=== PATIENT | female | born 1950 | race Hispanic/Latino ===

== ENCOUNTER 2019-06-18 10:17 | Emergency (ER) | payer MEDICARE, MEDICAID ==
[~2019-06-18] VITALS: Ht 144.8 cm; Wt 110.0 kg
[~2019-06-18 10:17] MED LIST: ASPIRIN EC81 MG PO; B-12 10001000 MCG PO; GLUCOPHAGE1000 MG PO; LANTUS100 MG/ML SC; LISINOPRIL2.5 MG PO; LISINOPRIL20 M1 PO; MELOXICAM PO; NAPROSYN500 MG PO; OXYBUTYNIN5 M1 PO; PERCOCET1 TA2 PO; PLAVIX75 MG PO; PROVENTIL IN; TRAMADOL HCL50 MG PO; TRAZODONE100 MG PO
[2019-06-18 10:50] LABS: HEMATOCRIT 41.1 % (37.0-47.0); HEMOGLOBIN 13.4 g/dl (12.0-16.0); IMMATURE GRANULOCYTES 0.4 % (0.0-5.0); MEAN CELL VOLUME 86.5 fL CALC (80.0-100.0); MEAN CORPUSCULAR HGB 28.2 pG CALC (26.0-32.0); MEAN CORPUSCULAR HGB CONC 32.6 g/L CALC (32.0-36.0); NEUT# 7.14 thou/uL (2.00-7.15); RED BLOOD COUNT 4.75 mill/uL (4.20-5.60); RED CELL DISTRI WIDTH 13.7 % (11.5-15.5)
[2019-06-18 11:14] LABS: ANION GAP 13 (6-22 (CALC)); BUN 13 mg/dL (8-23); BUN/CREATININE RATIO 28 (12-20 (CALC)); CARBON DIOXIDE 27 mmol/l (22-30); CHLORIDE 102 mmol/l (95-108); CREATININE 0.5 mg/dL (0.5-1.0); GFR > 60 ML/MIN (>=60 (CALC)); GFR FOR AFR.AMER. > 60 ML/MIN (>=60 (CALC)); POTASSIUM 4.6 mmol/l (3.5-5.1); SODIUM 137 mmol/l (137-146)
[2019-06-18 12:06] VITALS: BP 147/71
== END 2019-06-18 12:10 | disposition left against medical advice (07) ==
LOC: ED 10:17
PROVIDERS: Family Medicine
DX: R07.9 Chest pain, unspecified (principal); R55 Syncope and collapse; K45.8 Other specified abdominal hernia without obstruction or gangrene; I10 Essential (primary) hypertension; Y92.238 Other place in hospital as the place of occurrence of the external cause; R94.31 Abnormal electrocardiogram [ECG] [EKG]
CPT/HCPCS: Q9967

== ENCOUNTER 2022-08-26 21:03 | Emergency (ER) | payer MEDICARE, MEDICAID ==
[~2022-08-26] VITALS: Ht 147.3 cm; Wt 100.0 kg
[~2022-08-26 21:03] MED LIST changes: +EQ OMEPRAZOLE M20 MG; +GABAPENTIN100 MG PO; +HUMALOG100 UNIT/M SC; +LANTUS100 UNIT/M; +METFORMIN500 MG PO; +OXYBUTYNIN10 MG PO; +PROAIR HFA IN; +VITAMIN D PO
[2022-08-26 21:20] VITALS: BP 152/71
[2022-08-26 21:31] VITALS: BP 143/72
[2022-08-26] MEDS ORDERED: ORPHENADRINE100 MG PO (23:29)
[2022-08-26] MEDS ORDERED: TRAMADOL HCL50 MG PO (23:29)
[2022-08-26 23:59] VITALS: BP 148/57
[2022-08-27 00:05] VITALS: BP 148/57
== END 2022-08-27 00:06 | disposition home or self-care (01) ==
LOC: ED 21:03
DX: S16.1XXA Strain of muscle, fascia and tendon at neck level, initial encounter (principal); M47.812 Spondylosis without myelopathy or radiculopathy, cervical region; E11.9 Type 2 diabetes mellitus without complications; I10 Essential (primary) hypertension; Z79.84 Long term (current) use of oral hypoglycemic drugs; Z79.4 Long term (current) use of insulin; X58.XXXA Exposure to other specified factors, initial encounter

== ENCOUNTER 2023-02-17 19:22 | Emergency (ER) | payer MEDICARE, MEDICAID ==
[~2023-02-17] VITALS: Ht 147.3 cm; Wt 101.6 kg
[~2023-02-17 19:22] MED LIST changes: +ORPHENADRINE100 MG PO
[2023-02-17 19:45] VITALS: BP 136/55
[2023-02-17 20:01] VITALS: BP 130/56
[2023-02-17 20:16] VITALS: BP 124/54
[2023-02-17 20:32] VITALS: BP 76/52
[2023-02-17 21:16] VITALS: BP 142/57
[2023-02-17 21:32] LABS: BASO% 0.3 % (0-3); EOS% 1.6 % (0-8); HEMATOCRIT 36.9 % (37.0-47.0); HEMOGLOBIN 11.8 g/dl (12.0-16.0); IMMATURE GRANULOCYTES 0.2 % (0.0-5.0); LYMPH% 23.9 % (15-41); MEAN CELL VOLUME 87.2 fL CALC (80.0-100.0); MEAN CORPUSCULAR HGB 27.9 pG CALC (26.0-32.0); MONO% 5.9 % (2-13); NEUT# 7.08 thou/uL (2.00-7.15); NEUT% 68.1 % (42-76); RED BLOOD COUNT 4.23 mill/uL (4.20-5.60); RED CELL DISTRI WIDTH 13.3 % (11.5-15.5)
[2023-02-17 21:48] LABS: ALBUMIN 4.1 g/dL (3.2-5.0); ALKALINE PHOSPHATASE 107 u/l (38-126); AMYLASE 75 u/l (30-110); ANION GAP 10 (6-22 (CALC)); BUN 18 mg/dL (8-23); BUN/CREATININE RATIO 29 (12-20 (CALC)); CARBON DIOXIDE 27 mmol/l (22-30); CHLORIDE 106 mmol/l (95-108); CREATININE 0.6 mg/dL (0.5-1.0); GFR FOR AFR.AMER. > 60 ML/MIN (>=60 (CALC)); GFR OTHER RACES > 60 ML/MIN (>=60 (CALC)); LIPASE 115 u/l (23-300); POTASSIUM 4.6 mmol/l (3.5-5.1); SGOT/AST 26 u/l (9-36); SODIUM 138 mmol/l (137-146); TOTAL PROTEIN 7.4 g/dL (6.3-8.2)
[2023-02-17] MEDS ORDERED: MIRALAX17 GM PO (21:49)
[2023-02-17 22:00] LABS: BILIRUBIN, TOTAL 0.2 mg/dL (0.02-1.3)
[2023-02-17 22:18] VITALS: BP 142/57
== END 2023-02-17 22:20 | disposition home or self-care (01) ==
LOC: ED 19:22
PROVIDERS: Emergency Medicine
DX: K59.00 Constipation, unspecified (principal); I10 Essential (primary) hypertension; E11.9 Type 2 diabetes mellitus without complications; Z79.84 Long term (current) use of oral hypoglycemic drugs; Z79.4 Long term (current) use of insulin